=== PATIENT | female | born 1960 | race Native Hawaiian/Other Pacific Islander ===

== ENCOUNTER 2017-01-28 07:17 | Day surgery (SDC) | payer OTHER, MEDICARE ==
[2017-01-27 09:52] VITALS: BMI 29.7
[2017-01-28] MEDS ORDERED: Lactated Ringer's 1,000 ML IV ONE (09:14)
[2017-01-28] MEDS ORDERED: cefOXitin IV 2 gm in Dextrose 2 GM/50 ML BAG IVPB ONE (09:16)
[2017-01-28] MEDS ORDERED: Propofol 10 mg/ml Inj (20 ML) ONE (09:18)
[2017-01-28] MEDS ORDERED: Midazolam 2 MG/2 ML VIAL ONE (09:19)
--- NOTE | 2017-01-28 09:55 | PCM.SURG1 ---
Surgeon's Initial Post Op Note - Surgeon's Notes Surgeon: dr rodriguez Forestry Aid: none Type of Anesthesia: General LMA Anesthesia Administered By: dr driscoll Pre-Operative Diagnosis: 56 yr htn/dm and pmb/end thickening Operative Findings: see the op reoprt Post-Operative Diagnosis: same with end polyp Operation Performed: myasure/d &c, hyster Specimen/Specimens Removed: ecc. emc. polyp Estimated Blood Loss: EBL {In ML}: 50 Blood Products Given: N/A Drains Used: No Drains Post-Op Condition: Good Date of Surgery/Procedure: 01/28/17 Time of Surgery/Procedure: 10:00
[2017-01-28] MEDS ORDERED: HYDROmorphone 0.5 mg/0.5 ml ISec IVP PRN ×2 (10:35→10:58)
[2017-01-28 11:33] VITALS: BP 131/77; PULSE 72; RESP 18; TEMP 97; O2SAT 97
--- NOTE | 2017-02-01 01:13 | OP ---
PROCEDURE DATE: PREOPERATIVE DIAGNOSIS: A 56-year-old 1, para 1 with hypertension, diabetes and postmenopausal bleeding and endometrial thickening. POSTOPERATIVE DIAGNOSIS: A 56-year-old 1, para 1 with hypertension, diabetes and postmenopausal bleeding and endometrial thickening and endometrial polyps. SURGEON: Dr. Philipp Duarte. [employer] SURGEON: None. TYPE OF ANESTHESIA: General. ANESTHESIOLOGIST: Dr. Moe. ESTIMATED BLOOD LOSS: 50 mL. PROCEDURE: MyoSure dilatation and curettage, hysteroscopy. SPECIMEN: ECC and EMC, rule out polyps. DESCRIPTION OF PROCEDURE: After informed consent was obtained, the patient was brought to the operating room, placed supine on the table where general anesthesia was given. When anesthesia was found to be sufficient, she was prepped and draped in normal sterile fashion. Examination of the uterus revealed it to be 8-week size, no pelvic or adnexal masses. Anterior lip of the cervix was grasped with a tenaculum. Gentle dilatation of the cervix was done. Hysteroscopy was introduced, and found to have a polyp on the lateral wall of the uterus. Decision was to use MyoSure. MyoSure was used to take down the polyp and the polyp was removed. After the sharp curettage from all the way to the uterus was done. ECC was done and it was sent to the pathology. Hysteroscopy was then introduced, there was no polyp found. After that the tenaculum was removed. It was bleeding, so a stitch was placed for hemostasis, it was not bleeding anymore. was 200 mL. The patient tolerated the procedure well. Lap, sponge, and instrument count done at the end of case. Philipp Duarte MD
== END 2017-01-28 12:42 | disposition home or self-care (01) ==
LOC: C.SDS 07:17
PROVIDERS: ATTEND Obstetrics & Gynecology
DX: N84.0 Polyp of corpus uteri (principal); N95.0 Postmenopausal bleeding; I10 Essential (primary) hypertension; E11.9 Type 2 diabetes mellitus without complications
CPT/HCPCS: 58558; 82948; 88305; J0694; J2250; J2704; J3010; J7120